=== PATIENT | female | born 1985 | race Caucasian/White ===

== ENCOUNTER → 2018-03-19 | Outpatient (REF) | payer OTHER | LOC: M LAB REF 18:06 | DX: D10.39 Benign neoplasm of other parts of mouth (principal) ==

== ENCOUNTER → 2018-06-14 | Outpatient (CLI) | payer OTHER ==
--- NOTE | 2018-06-14 16:26 | REP ---
MAXILLOFACIAL CT WITHOUT CONTRAST: HISTORY: Chronic pansinusitis. The sinuses are clear. The osteomeatal units are patent. The middle and inferior nasal turbinates are partially paradoxical. 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 There is minimal deviation of the nasal septum to the right. A spur is present arising from the right side of the nasal septum. The cribriform plate, medial berg of the orbits and optic canals are intact. The carotid canals form a segment of the posterolateral berg of the sphenoid sinus. IMPRESSION:There is no acute or chronic sinusitis. Electronically Signed by Eugene Ahn MD 06/14/2018 04:28 P
== END ==
LOC: M RAD 15:46
PROVIDERS: ATTEND Otolaryngology
DX: J32.4 Chronic pansinusitis (principal)

== ENCOUNTER → 2018-07-07 | Outpatient (CLI) | payer OTHER ==
[2018-07-07 18:08] LABS: BASO # 0.1 10^3/uL (0.0-0.2); BASO % 0.8 % (0.0-1.0); EOS # 0.2 10^3/uL (0.0-0.50); EOS % 2.5 % (0.0-3.0); HEMATOCRIT 42.1 % (36.0-47.0); HEMOGLOBIN 14.4 g/dl (12.0-15.5); LYMPH # 1.9 10^3/uL (1.5-4.5); LYMPH % 29.3 % (24.0-44.0); MEAN CORPUSCULAR HEMOGLOBIN 31.9 pg (27.0-33.0); MEAN CORPUSCULAR HGB CONC 34.2 g/dl (32.0-36.5); MEAN CORPUSCULAR VOLUME 93.1 fl (80.0-96.0); MONO # 0.6 10^3/uL (0.0-0.8); NEUTROPHILS # 3.7 10^3/uL (1.8-7.7); NEUTROPHILS % 58.1 % (36.0-66.0); PLATELET COUNT, AUTOMATED 297 10^3/uL (150-450); RED BLOOD COUNT 4.52 10^6/uL (4.00-5.40); WHITE BLOOD COUNT 6.4 10^3/uL (4.0-10.0)
[2018-07-07 18:20] LABS: ALBUMIN 3.9 GM/DL (3.2-5.2); ALT/SGPT 23 U/L (12-78); BILIRUBIN,TOTAL 0.3 MG/DL (0.2-1.0); BLOOD UREA NITROGEN 11 MG/DL (7-18); CALCIUM LEVEL 8.3 MG/DL (8.5-10.1); CARBON DIOXIDE LEVEL 28 MEQ/L (21-32); CHLORIDE LEVEL 106 MEQ/L (98-107); CREATININE FOR GFR 0.82 MG/DL (0.55-1.30); GLOMERULAR FILTRATION RATE > 60.0 (>60); GLUCOSE, FASTING 87 MG/DL (70-100); POTASSIUM SERUM 4.4 MEQ/L (3.5-5.1); RHEUMATOID FACTOR QUANT < 10.0 IU/ML (<15.0); SODIUM LEVEL 140 MEQ/L (136-145); THYROGLOBULIN ANTIBODY < 15.0 U/ML (<60.0); THYROID PEROXIDASE ANTIBODY 29.9 U/ML (<60.0); THYROID STIMULATING HORMONE 0.927 uIU/ML (0.358-3.740); THYROXINE (T4) 10.4 UG/DL (4.5-12.0); TOTAL PROTEIN 7.7 GM/DL (6.4-8.2); TOTAL T3 102.4 NG/DL (60.0-181.0)
[2018-07-16 00:10] LABS: IGE RECEPTOR ABY 1 <2.4 (<10)
== END ==
LOC: M SMT 14:53
PROVIDERS: ATTEND Allergy & Immunology Allergy
DX: L50.3 Dermatographic urticaria (principal)